=== PATIENT | male | born 1975 | race Caucasian/White ===

== ENCOUNTER 2016-10-29 13:03 | Emergency (ER) | payer SELFPAY | END 2016-10-29 14:10 | disposition home or self-care (01) | LOC: D.ER 13:03 | DX: S29.011A Strain of muscle and tendon of front wall of thorax, initial encounter (principal); S21.109A Unspecified open wound of unspecified front wall of thorax without penetration into thoracic cavity, initial encounter; X58.XXXA Exposure to other specified factors, initial encounter; Y93.89 Activity, other specified; Y92.89 Other specified places as the place of occurrence of the external cause; M79.601 Pain in right arm; F32.9 Major depressive disorder, single episode, unspecified ==